=== PATIENT | male | born 1930 | race Caucasian/White ===

== ENCOUNTER 2016-08-02 13:49 | Emergency (ER) | payer MEDICARE, OTHER ==
--- NOTE | ~2016-08-02 | ER ---
PATIENT'S NAME: [facility] AGE: 86 Y [address] ROOM: [place] [address] LOCATION: [facility] ADMIT DATE: 08/02/2016 ER/Outpatient Report DISCHARGE DATE: FAMILY PHYSICIAN: Physician, Unknown ATTENDING PHYSICIAN: Mari Salgado SEEN AT: 1410 hours. CHIEF COMPLAINT: Recent memory loss. HISTORY OF PRESENT ILLNESS: The patient is an 86-year-old male, a patient of Dr. Barron. The patient was brought to the emergency room by his son concerned that over the last 2 or 3 days, he has noticed that his short-term memory was poor. The patient's son states that he is asking some recent things such as him ordering a furnace, but he could not remember. The patient himself denies any fever or chills. No recent falls or head injuries. He denies any new medicines. ALLERGIES: NONE. CURRENT MEDICATIONS: See copied list, which was reviewed. MEDICAL HISTORY: Hypertension, BPH, hyperlipidemia, and degenerative arthritis. SURGERIES: Mastoid surgery years ago. He has had a right total hip replacement. SOCIAL HISTORY: He is . Denies any alcohol or tobacco use. Lives in the [facility]. REVIEW OF SYSTEMS: HEAD: The patient denies headaches or neck pain. EYES, EARS, NOSE, THROAT: Vision is corrected, but he denies any change in his vision. Denies sore throat or difficulty swallowing. RESPIRATORY: No shortness of breath. No cough. CARDIOVASCULAR: He has had no recent chest pain or heart palpitations. GASTROINTESTINAL: Denies any weight loss or change in his bowel habits. GENITOURINARY: He has a history of an enlarged prostate. No dysuria. MUSCULOSKELETAL: He has had some degenerative arthritis, but no recent increase in pain. PATIENT'S NAME: [facility] AGE: 86 Y [address] ROOM: [place], [place] [id number] LOCATION: [facility] ADMIT DATE: 08/02/2016 ER/Outpatient Report DISCHARGE DATE: FAMILY PHYSICIAN: Physician, Unknown ATTENDING PHYSICIAN: Mari Salgado NEURO/PSYCH: Denies any visual changes. Denies any weakness or numbness or tingling to his upper or lower extremities. No change in his gait. Memory sood, his son says that he has had somewhat of an acute short-term memory loss. PHYSICAL EXAMINATION: VITAL SIGNS: He had a blood pressure of 187/94, his temperature is 97.1, his respiratory rate is 18, pulse is 85, and his O2 saturation is 92%. GENERAL APPEARANCE: Appeared somewhat unkempt, but he appeared oriented to person, place, and time; however, he could not remember the day or month. HEENT: Head atraumatic. Eyes: Pupils appeared equal and reactive to light. He had no noticeable visual field defects. Oral membranes are moist. Teeth somewhat stained. LUNGS: Lungs sounded clear. HEART: Heart tones distant, regular. ABDOMEN: Soft. No guarding. EXTREMITIES: No pedal edema. NEURO: Again, his short-term memory test today was able to remember what he had for lunch, however, he was unable to name the month or the year. He was oriented to person, place, and time. There was no facial droop. His extremities had symmetrical strength. LABORATORY DATA AND X-RAYS: CT scan showed just degenerative changes, otherwise unremarkable. His B12 within normal limits at 761 as well as his TSH was 1.770. Urine, negative nitrites. His micro showed no significant signs of any infection. CMS: His glucose was 120, his BUN was 34, creatinine was 2 which was high, GFR was 32. CBC: White count 11.8 and hemoglobin . ASSESSMENT: 1. Acute short-term memory loss. 2. History of benign prostatic hypertrophy with some renal insufficiency. 3. Hypertension. 4. Hyperlipidemia. PLAN: Discussed the patient's findings and chief complaint with Dr. Salgado, she thought it is feasible that he could go home and then follow up with Dr. Barron on Thursday. Family also agreed to that plan. BRANDY RIVAS FOR MARI SALGADO MD PATIENT'S NAME: [facility] AGE: 86 Y [address] ROOM: [place] [address] LOCATION: [facility] ADMIT DATE: 08/02/2016 ER/Outpatient Report DISCHARGE DATE: FAMILY PHYSICIAN: Physician, Unknown ATTENDING PHYSICIAN: Mari SalgadoJ/modl /[id number] d: 08/02/16 1836 t: 08/05/16 0922, OUTPATIENT REPORT
[2016-08-02 14:34] LABS: BASOPHIL % 0.3 %; EOSINOPHIL % 0.3 %; HEMATOCRIT 48.5 % (33.0-50.0); HEMOGLOBIN 15.9 g/dL (11.0-16.0); IMMATURE GRANULOCYTE # 0.1 K/uL (0.0-0.3); IMMATURE GRANULOCYTE % 0.6 %; LYMPHOCYTE # 1.8 K/uL (0.8-4.0); LYMPHOCYTE % 15.6 %; MCHC 32.8 gm/dL (32.0-36.5); MCV 91.5 fl (83.0-98.0); MONOCYTE % 8.6 %; MPV 10.1 fl (9.4-12.4); NEUTROPHIL # (ANC) 8.8 K/uL (1.4-9.0); NEUTROPHIL % 74.6 %; NRBC % 0 /100WBC (0-0.00); PLATELET COUNT 208 K/uL (150-450); WBC 11.8 K/uL (4.0-11.0)
[2016-08-02 14:49] LABS: ALBUMIN 3.8 gm/dL (3.5-5.0); CALCIUM 8.8 mg/dL (8.5-10.5); TOTAL PROTEIN 7.7 g/dL (6.0-8.4)
[2016-08-02 15:04] LABS: BILIRUBIN URINE NEGATIVE (NEGATIVE); BLOOD URINE 10 /UL (NEGATIVE); COLOR URINE YELLOW (YELLOW); GLUCOSE URINE NEGATIVE (NEGATIVE); KETONE URINE NEGATIVE (NEGATIVE); LEUKOCYTES URINE NEGATIVE /UL (NEGATIVE); NITRITE URINE NEGATIVE (NEGATIVE); PH URINE 6.5 (4.0-8.0); PROTEIN URINE 15 mg/dL (NEGATIVE); TURBIDITY URINE CLEAR (CLEAR); UROBILINOGEN URINE NORMAL (NORMAL)
[2016-08-02 15:16] LABS: EPITHELIAL URINE 0-2 #/HPF (NEGATIVE); RBC URINE 0-2 #/HPF (NEGATIVE); WBC URINE 0-2 #/HPF (NEGATIVE)
[2016-08-02 15:17] LABS: BACTERIA URINE NEGATIVE (NEGATIVE); HYALINE CAST URINE 0-2 #/LPF (NEGATIVE)
== END 2016-08-02 15:50 | disposition disaster alternative care site (69) ==
LOC: GMED 13:49
PROVIDERS: Physician Assistant Medical
DX: R41.3 Other amnesia (principal); I10 Essential (primary) hypertension; E78.5 Hyperlipidemia, unspecified; M19.90 Unspecified osteoarthritis, unspecified site; Z98.890 Other specified postprocedural states